=== PATIENT | female | born 1950 | race Caucasian/White ===

== ENCOUNTER 2022-04-12 06:18 | Emergency (ER) | payer MEDICARE ==
[2022-04-12] MEDS ORDERED: Ondansetron PF 4 MG/2 ML Vial ONE (07:20)
[2022-04-12 07:35] LABS: #Basophils 0.1 10x3/uL (0.0-0.2); #Eosinphils 0.1 10x3/uL (0.0-0.5); #Monocytes 0.7 10x3/uL (0.0-1.1); #Neutrophils 12.2 10x3/uL (1.5-8.4); %Basophils 0.4 % (0.0-2.0); %Eosinophils 0.4 % (0.0-6.0); %Lymphocytes 10.3 % (18.0-47.0); %Monocytes 4.5 % (0.0-10.0); %Neutrophils 84.1 % (40.0-75.0); Hemoglobin 13.4 g/dL (12.0-15.5); Mean Corpuscular HGB CONC 33.2 g/dL (32.0-36.0); Mean Corpuscular Volume 87.4 fl (81.6-98.3); Mean Platelet Volume 10.6 fl (7.4-10.4); Platelet Count 266 10x3/uL (150-450); RBC Distribution Width 14.6 % (11.5-14.5); Red Blood Cell (RBC) Count 4.62 10x6/uL (3.90-5.03); White Blood Cell (WBC) Count 14.5 10x3/uL (3.5-10.5)
[2022-04-12] MEDS ORDERED: Dicyclomine 20 MG TAB ONE (07:46)
[2022-04-12 07:56] LABS: ALT (SGPT) 19 U/L (8-55); AST (SGOT) 21 U/L (5-34); Albumin 4.2 g/dL (3.4-4.8); Alkaline Phosphatase 98 U/L (40-110); Anion Gap 18 mmol/L (10-20); BUN (Urea Nitrogen) 9 mg/dL (9.8-20.1); Bilirubin, Total 0.3 mg/dL (0.2-1.2); Calc. Creatinine Clearance 0 mL/min (70-130); Calcium 9.4 mg/dL (7.8-10.44); Carbon Dioxide 26 mmol/L (23-31); Chloride 102 mmol/L (98-107); Globulin 3.1 g/dL (2.4-3.5); Glucose 119 mg/dL (80-115); Lipase 25 U/L (8-78); Protein, Total 7.3 g/dL (5.8-8.1); Sodium 142 mmol/L (136-145)
[2022-04-12] MEDS ORDERED: Iopamidol 300 61% 100 ML VIAL FS ONE (10:54)
== END 2022-04-12 09:13 | disposition home or self-care (01) ==
LOC: CSHERS 06:18
DX: K57.32 Diverticulitis of large intestine without perforation or abscess without bleeding (principal); N28.89 Other specified disorders of kidney and ureter; I10 Essential (primary) hypertension; E78.5 Hyperlipidemia, unspecified; E66.9 Obesity, unspecified; Z68.45 Body mass index [BMI] 70 or greater, adult
CPT/HCPCS: 74177; 80053; 83690; 85025; 96361; 96374; J2405; Q9967

== ENCOUNTER 2022-06-24 10:02 | Outpatient (CLI) | payer MEDICARE | END 2022-06-24 10:03 | disposition home or self-care (01) | LOC: CSHMAMMO 10:02 | PROVIDERS: ATTEND Internal Medicine | DX: Z12.31 Encounter for screening mammogram for malignant neoplasm of breast (principal); Z85.41 Personal history of malignant neoplasm of cervix uteri | CPT/HCPCS: 77063; 77067 ==

== ENCOUNTER 2023-07-04 08:07 | Outpatient (CLI) | payer OTHER ==
[2023-07-04] MEDS ORDERED: Iopamidol 300 61% 100 ML VIAL FS ONE (10:33)
== END 2023-07-04 08:08 | disposition home or self-care (01) ==
LOC: CSHCT 08:07
PROVIDERS: ATTEND Urology
DX: C64.1 Malignant neoplasm of right kidney, except renal pelvis (principal)
CPT/HCPCS: 71046; 74160; 82565

== ENCOUNTER 2023-10-04 07:45 | Outpatient (CLI) | payer OTHER | END 2023-10-04 07:46 | disposition home or self-care (01) | LOC: CSHMAMMO 07:45 | PROVIDERS: ATTEND Internal Medicine | DX: N63.10 Unspecified lump in the right breast, unspecified quadrant (principal); Z13.820 Encounter for screening for osteoporosis; M85.852 Other specified disorders of bone density and structure, left thigh; M85.851 Other specified disorders of bone density and structure, right thigh; M81.0 Age-related osteoporosis without current pathological fracture; R92.8 Other abnormal and inconclusive findings on diagnostic imaging of breast; Z78.0 Asymptomatic menopausal state | CPT/HCPCS: 76642; 77066; 77080; G0279 ==

== ENCOUNTER 2025-08-21 12:51 | Outpatient (CLI) | payer OTHER | END 2025-08-21 12:52 | disposition home or self-care (01) | LOC: CSHMAMMO 12:51 | PROVIDERS: ATTEND Internal Medicine | DX: Z12.31 Encounter for screening mammogram for malignant neoplasm of breast (principal); Z85.41 Personal history of malignant neoplasm of cervix uteri | CPT/HCPCS: 77063; 77067 ==